=== PATIENT | male | born 1995 | race Caucasian/White ===

== ENCOUNTER 2023-09-24 13:31 | Emergency (ER) | payer OTHER, SELFPAY ==
[2023-09-24 13:34] VITALS: BP 118/85
[2023-09-24 14:17] VITALS: BMI 29.1
--- NOTE | 2023-09-24 15:22 | ED.GENMED ---
History of Present Illness
General
Chief Complaint: Urinary Symptoms
Source: patient
Exam Limitations: none
Time Seen by Provider: 09/24/23 14:46
Travel History
Have you had any contact with someone who has COVID-19?: No
Do you have any symptoms of coronavirus? Fever > 100 degrees, chills, cough, shortness of breath, sore throat, loss of taste or smell, muscle aches, or headache?: No
History of Present Illness
History of Present Illness:
28-year-old male who states that he cannot urinate. The patient states that started yesterday. He states that yesterday had difficult time urinating but when you try to urinate when he would get very fall, he was just let a little bit out and it
would stop. He states today he did urinate about an hour prior to arrival but only little bit came out he feels like he has to urinate and is full. No fevers. No dysuria. No pain with defecation. No back pain. No numbness or tingling in the
legs. He is on glycopyrrolate due to excessive sweating due to history of hidradenitis suppurativa.
Past History
Past History
ED Past Medical History: Other (Hidradenitis suppurativa)
Social History
Tobacco: Non-smoker
Alcohol: None
Drug: None
Phy Exam
Physical Exam
Physical Exam:
CONSTITUTIONAL Patient alert and oriented to person, place and time. Well-appearing. Vital signs reviewed.
HEAD atraumatic, normocephalic.
EYES eyelids normal to inspection, Extraocular muscles intact, Conjunctiva normal, Sclera normal. pupils dilated
NECK normal range of motion, Trachea midline, no jugular venous distention.
RESPIRATORY CHEST No respiratory distress noted, Chest expansion equal,
ABDOMEN moderate suprapubic tenderness, mild distention.
rectal exam prostate nontender. nl otherwise
UPPER EXTREMITY range of motion normal, Motor strength normal, no cyanosis, no edema.
LOWER EXTREMITY range of motion normal, Motor strength normal, no cyanosis, no edema.
NEURO Speech normal, No focal motor deficits, Ivania coma scale 15, Memory normal, Cranial Nerves intact to screening exam.
SKIN skin warm, dry, and normal in color.
PSYCHIATRIC patient oriented to person place and time, Normal affect.
Course
Orders/Labs/Results
Orders:
Orders
09/24/23 14:57
Lidocaine/Epinephrine/Tetracai [Let Topical Anesthetic Gel] 3 ml .ROUTE .STK-MED ONE
09/24/23 15:04
Urinalysis Reflex To Culture Urgent
Date Specimen was Collected: 09/24/23
Time Specimen was Collected: 15:03
09/24/23 18:09
Lanier Placement- Treatment ONCE
Reason for insertion: Acute Retention
09/24/23 19:27
Lidocaine 2% [Lidocaine Uro-Jet 2%] 1 syringe .ROUTE .STK-MED ONE
09/24/23 19:35
Lidocaine 2% [Lidocaine Uro-Jet 2%] 2 syringe TOPICAL NOW STA
Abnormal Lab Results
09/24/23
15:04
Urine Ketones Trace A
(Negative)
Vital Signs
Initial and Last Documented VS:
Initial Vital Signs
Temp Pulse Resp BP Pulse Ox
97.8 F 88 18 118/85 96
09/24/23 13:34 09/24/23 13:34 09/24/23 13:34 09/24/23 13:34 09/24/23 13:34
Last Documented Vital Signs
Temp Pulse Resp BP Pulse Ox
97.8 F 88 18 118/85 96
09/24/23 13:34 09/24/23 13:34 09/24/23 13:34 09/24/23 13:34 09/24/23 13:34
MDM/Problems Addressed
MDM/Problems Addressed:
Urinary retention, medication reaction, hidradenitis suppurativa, anticholinergic medication side effects
*Pulse Oximetry
Patient hypoxic: no
*Critical Care Note
Total Time (30-74mins, 75-104mins- exclusive of procedures): 30 minutes
Data Reviewed
Source: patient
Prescriptions/Medications Considered But Not Given:
Considered antibiotics but do not suspect prostatitis
Further Testing Considered But Not Given:
Considered CT imaging but suspect related to glycopyrrolate
Patient Management
Escalation/DeEscalation of care consider admission/obs:
28-year-old male presents with urinary retention. After exam further history reveals that he also has had an extremely dry mouth. In addition it is noted that he has pupillary dilatation. I suspect an anticholinergic syndrome related to his
glycopyrrolate. This will need to wear off. Attempted to straight cath and urinate but he is unable to. Lanier catheter placed. Follow-up with urology. Stop glycopyrrolate. Already on doxycycline and Macrobid which I think is reasonable.
ED Attending Note
-
Portions of this chart may have been created with voice recognition software.� Occasional wrong word or��sound alike� substitutions may have occurred due to the inherent limitations of voice recognition software.
Discharge Plan
Departure
Patient Disposition: Home (Routine Discharge)
Date of Disposition: 09/24/23
Time of Disposition: 22:52
Patient with high blood pressure during this ER visit?: No
Discharge Problem:
Acute urinary retention, Anticholinergic syndrome
Instructions: Urinary retention
Prescriptions:
No Action
acetaminophen-codeine 1 EACH tablet
2 ea PO Q4HPRN PRN (Reason: Left ankle pain) Qty: 20 0RF
ibuprofen 400 MG tablet
400 mg PO Q6HPRN PRN (Reason: Left ankle pain) Qty: 30 0RF
Referrals:
Cooper Mott MD [Active] -
Angela Westbrook DO [Family Provider] -
Activity Restrictions/Additional Instructions:
Please stop your glycopyrrolate. Please see urology in the next 3 days for follow-up and reevaluation of your Lanier catheter and urinary retention. Other signs that the medication is worn off is if your pupils normalize and your dry mouth
subsides. Return to the emergency department immediately for abdominal pain, fevers or any other concerns.
Interventions
Interventions:
*Risk Screen - Suicide Last Done: 09/24/23 14:17
*General Assessment Last Done: 09/24/23 13:35
*Neglect/Abuse Screening Last Done: 09/24/23 14:17
ED- Fall Risk Assessment Last Done: 09/24/23 14:17
*ED COVID-19 Vaccine History Last Done: 09/24/23 13:35
ED-Male Genitourinary Assessment Last Done: 09/24/23 14:17
Discharge Date and Time
Print Language: TELUGU
[2023-09-24 15:23] LABS: Urine Albumin Negative (Neg - Trace); Urine Bilirubin Negative (Negative); Urine Character Clear (Clear); Urine Color Yellow; Urine Glucose Negative (Negative); Urine Ketone Trace (Negative); Urine Leukocyte Negative (Negative); Urine Nitrite Negative (Negative); Urine Occult Blood Negative (Negative); Urine Urobilinogen Negative (Neg - 1+)
[2023-09-24] MEDS: LIDOCAINE URO-JET 2% 2 SYRINGE TOPICAL (19:42)
== END 2023-09-24 23:00 | disposition home or self-care (01) ==
LOC: EMR 13:31
PROVIDERS: EMERGENCY PHYSICIAN Emergency Medicine; FAMILY PHYSICIAN Family Medicine
DX: R33.9 Retention of urine, unspecified (principal); L73.2 Hidradenitis suppurativa; R68.2 Dry mouth, unspecified; T44.3X5A Adverse effect of other parasympatholytics [anticholinergics and antimuscarinics] and spasmolytics, initial encounter; R61 Generalized hyperhidrosis
CPT/HCPCS: 99291; 51798 ×2; 51702; 81003

== ENCOUNTER 2023-09-26 16:35 | Emergency (ER) | payer OTHER, SELFPAY ==
[2023-09-26 16:41] VITALS: BP 123/84
--- NOTE | 2023-09-26 17:24 | ED.GENMED ---
History of Present Illness
<Adrianna Del Toro PA-C - Last Filed: 09/26/23 18:28>
General
Chief Complaint: Catheter/Tube Problem
Source: patient
Exam Limitations: none
Time Seen by Provider: 09/26/23 17:23
Nursing documentation reviewed up to this point in time: agreed with
Travel History
Have you had any contact with someone who has COVID-19?: No
Do you have any symptoms of coronavirus? Fever > 100 degrees, chills, cough, shortness of breath, sore throat, loss of taste or smell, muscle aches, or headache?: No
History of Present Illness
History of Present Illness:
This is a 28-year-old male with a history of hidradenitis suppurativa, hyperhidrosis presenting to emergency department today for a Matthews catheter removal. He was seen here in the emergency department 3 days ago because he started to have symptoms
of urinary retention as well as dry mouth. Patient formally took glycopyrrolate for hyperhidrosis. It was determined that patient was experiencing an anticholinergic toxidrome as a result of the glycopyrrolate. Patient was advised to stop taking
his medication for the time being. Today, patient denies dilation of his pupils, any nausea or vomiting, any penile pain, any fevers or chills, any dry mouth. Patient feels well. Patient has a follow-up consultation with urology tomorrow but when
he called the office, they said they would not take the Matthews catheter out in the office.
Past History
<Adrianna Del Toro PA-C - Last Filed: 09/26/23 18:28>
Past History
ED Past Medical History: Other (Hidradenitis suppurativa)
Social History
Tobacco: Non-smoker
Alcohol: None
Drug: None
Review of Systems
<Adrianna Del Toro PA-C - Last Filed: 09/26/23 18:28>
Review of Systems
All Other Systems: ROS reviewed and negative except as documented in HPI and ROS
Phy Exam
<Adrianna Del Toro PA-C - Last Filed: 09/26/23 18:28>
Physical Exam
Physical Exam:
General: Patient is well appearing and in no acute distress; non-toxic
Skin: Warm and dry, no rashes or lesions
Head: Normocephalic, atraumatic
Eyes: Sclera non-icteric. EOMs intact. PERRLA, no mydriasis.
Mouth: Mucous membranes appear moist. No intraoral lesions.
Cardiac: Regular rate.
Peripheral Vascular: No lower extremity swelling.
Pulm: Normal respiratory effort.
Abdomen: No abdominal tenderness.
Genitourinary: Matthews catheter in place with yellow urine in catheter bag.
Neuro: CN II-XII intact, no focal neurologic deficits.
Psychiatric: Appropriate mood and affect.
Course
<Adrianna Del Toro PA-C - Last Filed: 09/26/23 18:28>
Vital Signs
Initial and Last Documented VS:
Initial Vital Signs
Temp Pulse Resp BP Pulse Ox
99.2 F 88 20 123/84 95
09/26/23 16:41 09/26/23 16:41 09/26/23 16:41 09/26/23 16:41 09/26/23 16:41
Last Documented Vital Signs
Temp Pulse Resp BP Pulse Ox
99.2 F 88 20 123/84 95
09/26/23 16:41 09/26/23 16:41 09/26/23 16:41 09/26/23 16:41 09/26/23 16:41
<Levi Oakes MD - Last Filed: 09/26/23 18:40>
Vital Signs
Initial and Last Documented VS:
Initial Vital Signs
Temp Pulse Resp BP Pulse Ox
99.2 F 88 20 123/84 95
09/26/23 16:41 09/26/23 16:41 09/26/23 16:41 09/26/23 16:41 09/26/23 16:41
Last Documented Vital Signs
Temp Pulse Resp BP Pulse Ox
99.2 F 88 20 123/84 95
09/26/23 16:41 09/26/23 16:41 09/26/23 16:41 09/26/23 16:41 09/26/23 16:41
<Adrianna Del Toro PA-C - Last Filed: 09/26/23 18:28>
MDM/Problems Addressed
Differential Diagnosis Includes:
encounter for matthews catheter removal
MDM/Problems Addressed:
urinary retention
Chronic conditions affecting care:
HS, hyperhidrosis
Acute Exacerbation and/or Progression of Chronic Illness:
HS, hyperhidrosis
<FAM Hollis Last Filed: 09/26/23 18:28>
*Critical Care Note
Total Time (30-74mins, 75-104mins- exclusive of procedures): Not Applicable
<FAM Hollis Last Filed: 09/26/23 18:28>
Patient Management
Escalation/DeEscalation of care consider admission/obs:
This is a 28-year-old male with a history of hidradenitis suppurativa, hyperhidrosis presenting to emergency department today for a Matthews catheter removal. On exam, patient is a Matthews catheter in place draining urine. Patient has no signs or
symptoms of infection. Patient's anticholinergic symptoms have largely resolved. Will proceed with voiding trial and Matthews catheter will be removed. Return precautions given, patient stable for discharge.
ED Attending Note
<FAM Hollis Last Filed: 09/26/23 18:28>
-
Portions of this chart may have been created with voice recognition software.� Occasional wrong word or��sound alike� substitutions may have occurred due to the inherent limitations of voice recognition software.
<Levi Oakes MD - Last Filed: 09/26/23 18:40>
ED Attending Note
Patient seen and examined by attending physician: Yes
I performed the substantive portion of visit, reviewed & personally made and approve the management plan that is documented in note by myself or JERMAN.: Yes
ED Attending Note:
Patient had a urinary catheter placed 3 days ago likely secondary to anticholinergic medication. His dry mouth is resolved he has no other symptoms no infectious symptoms. He would like his catheter out.
On exam patient is nontoxic. He is good lower extremity strength. He is in no distress. Abdomen is soft and nontender. Catheter looks clear.
This is likely medication related. I said we catheter out but he is aware that this is still a trial and that if he has any ongoing issues throughout the night or difficulty urinating he will need to come back for catheter placement. Also stressed
to watch for infectious symptoms. Also stressed to follow-up with urology unless his symptoms totally have resolved
Discharge Plan
Departure
Patient Disposition: Home (Routine Discharge)
Date of Disposition: 09/26/23
Time of Disposition: 18:13
Patient with high blood pressure during this ER visit?: No
Condition: Good
Discharge Problem:
Encounter for Matthews catheter removal
Instructions: Urinary retention - Discharge instructions, BLOOD PRESSURE
Prescriptions:
No Action
acetaminophen-codeine 1 EACH tablet
2 ea PO Q4HPRN PRN (Reason: Left ankle pain) Qty: 20 0RF
ibuprofen 400 MG tablet
400 mg PO Q6HPRN PRN (Reason: Left ankle pain) Qty: 30 0RF
Referrals:
Angela Westbrook, [Family Provider] -
Activity Restrictions/Additional Instructions:
Please monitor your symptoms over the next 24 hours and please follow up with urology or the emergency department should you experience persistent retention.
PLEASE RETURN TO THE EMERGENCY DEPARTMENT SHOULD YOU EXPERIENCE BURNING WITH URINATION, FLANK PAIN, FEVERS OR CHILLS, PALPITATIONS, DILATED PUPILS, PENILE PAIN, OR ANY OTHER SIGNS OR SYMPTOMS CONCERNING TO YOU.
Please follow up with your registered appraiser.
Interventions
Interventions:
*Risk Screen - Suicide Last Done: 09/26/23 16:41
*General Assessment Last Done: 09/26/23 16:41
*Neglect/Abuse Screening Last Done: 09/26/23 16:41
Discharge Date and Time
Print Language: TAIWANESE
== END 2023-09-26 18:51 | disposition home or self-care (01) ==
LOC: EMR 16:35
PROVIDERS: EMERGENCY PHYSICIAN Emergency Medicine; FAMILY PHYSICIAN Family Medicine
DX: Z46.6 Encounter for fitting and adjustment of urinary device (principal); R61 Generalized hyperhidrosis; R33.9 Retention of urine, unspecified
CPT/HCPCS: 99283